=== PATIENT | female | born 1950 | race Caucasian/White ===

== ENCOUNTER → 2016-09-24 | Outpatient (CLI) | payer MEDICARE ==
--- NOTE | 2016-09-24 10:21 | MR ---
EXAMINATION TYPE: MR shoulder RT wo con DATE OF EXAM: 09/24/2016 10:03 AM COMPARISON: NONE HISTORY: pain in right shoulder TECHNIQUE: Multiplanar multispin echo imaging of the right shoulder was performed. FINDINGS: Rotator cuff : Full thickness partial tear supraspinatus tendon distal to the critical zone with flui d-filled gap of 8.8 mm. The remaining supraspinatus tendon is thickened and demonstrates heterogeneit y with a microinjury. Tendinosis of the subscapularis tendon. Infraspinatus tendon is intact. Bursa: Amount of subacromial subdeltoid fluid. Additional fluid noted within the subcoracoid region. Musculature: There is no muscular tear, contusion, or atrophy. Acromioclavicular joint : Moderate AC joint arthropathy. Lateral downsloping of the acromion with sub acromial spurring resulting in impingement. Osseous structures : There are no fractures or regions of abnormal bone marrow signal intensity. Long biceps tendon : The biceps tendon is normally situated within the bicipital groove. No complete or partial biceps tendon tear is present. Intra-articular tendinosis of the biceps tendon. Glenohumeral Joint fluid : There is no glenohumeral joint effusion. Cartilage and Bone : No focal hyaline cartilage defects are noted. No Hill-Sachs, reverse Hill-Sachs, or bony Bankart lesions are seen. Labrum : There are no SLAP or soft tissue Bankart lesions. No paralabral cysts are seen. OTHER FINDINGS : none IMPRESSION: 1. Full thickness partial tear supraspinatus tendon distal to the critical zone with fluid-filled gap of 8.8 mm. 2. Subacromial impingement.
== END | disposition home or self-care (01) ==
LOC: RADMRIMAIN 09:11
PROVIDERS: ATTEND Family Medicine
DX: M75.121 Complete rotator cuff tear or rupture of right shoulder, not specified as traumatic (principal); M25.811 Other specified joint disorders, right shoulder

== ENCOUNTER → 2017-03-13 | Outpatient (CLI) | payer MEDICARE ==
--- NOTE | 2017-03-13 16:53 | BD ---
EXAMINATION TYPE: MG DEXA axial skeleton. DATE OF EXAM: 03/13/2017 COMPARISON: NONE CLINICAL HISTORY: 66-year-old female screening for osteoporosis Height: 5 FT 3 IN Weight: 137 FRAX RISK QUESTIONS: Alcohol (3 or more units per day): NO Family History (Parent hip fracture): NO Glucocorticoids (More than 3mos): NO (Ex: prednisone, prednisolone, methylprednisolone, dexamethasone, and hydrocortisone). History of Fracture in Adulthood: NO Secondary Osteoporosis: 1. Type 1 Diabetes: NO 2. Hyperthyroidism: NO 3. Menopause before 45: NO 4. Malnutrition: NO 5. Chronic liver disease: NO Rheumatoid Arthritis: NO Current Tobacco Use: NO RISK FACTORS HISTORY OF: Family History of Osteoporosis: YES Active: YES Postmenopausal woman: AGE 49 MEDICATIONS: Additional Medications: PAXIL, Additional History: EXAM MEASUREMENTS: Bone mineral densitometry was performed using the [employer] System. Bone mineral density as measured about the Lumbar spine is: ----- L1-L4(G/cm2): 1.095 T Score Values are as follows: ----- L2: -1.1 ----- L3: -1.1 ----- L4: -0.4 ----- L1-L4: -0.7 Bone mineral density has: INCREASED 9.5 % since study of: 2009 Bone mineral density about the R hip (g/cm2): 0.753 Bone mineral density about the L hip (g/cm2): 0.837 T Score values are as follows: -----R Neck: -2.1 -----L Neck: -1.4 -----R Total: -0.9 -----L Total: -0.6 Bone mineral density has: DECREASED -1.1 % since study of: 2009 IMPRESSION: Osteopenia (T Score between -2.5 and -1 as noted by T score values There is slightly increased risk of fracture and the patient may be considered for treatment. Re-Screen 2-5 years. NOTE: T-SCORE=SD OF THE YOUNG ADULT MEAN.
== END | disposition home or self-care (01) ==
LOC: RADBDWWP 09:20
PROVIDERS: ATTEND Obstetrics & Gynecology
DX: M85.851 Other specified disorders of bone density and structure, right thigh (principal); M85.852 Other specified disorders of bone density and structure, left thigh; Z78.0 Asymptomatic menopausal state
CPT/HCPCS: 77080

== ENCOUNTER → 2017-06-17 | Outpatient (CLI) | payer MEDICARE ==
[2017-06-17 10:10] LABS: Basophils % (A) 1 %; Eosinophils # (A) 0.3 k/uL (0-0.7); Eosinophils % (A) 7 %; HCT 41.4 % (34.0-46.0); HGB 13.4 gm/dL (11.4-16.0); Lymphocytes # (A) 1.5 k/uL (1.0-4.8); Lymphocytes % (A) 36 %; MCH 30.4 pg (25.0-35.0); MCHC 32.5 g/dL (31.0-37.0); MCV 93.8 fL (80.0-100.0); Mean Platelet Volume 6.6; Monocytes # (A) 0.3 k/uL (0-1.0); Monocytes % (A) 6 %; Neutrophils # (A) 1.9 k/uL (1.3-7.7); Neutrophils % (A) 47 %; Platelet Count 330 k/uL (150-450); RBC 4.42 m/uL (3.80-5.40); RDW 12.9 % (11.5-15.5); WBC 4.1 k/uL (3.8-10.6)
[2017-06-17 10:21] LABS: ALT 49 U/L (9-52); AST 40 U/L (14-36); Albumin 4.1 g/dL (3.5-5.0); Alkaline Phosphatase 127 U/L (38-126); Anion Gap 9 mmol/L; Blood Urea Nitrogen 17 mg/dL (7-17); Calcium 9.9 mg/dL (8.4-10.2); Carbon Dioxide 27 mmol/L (22-30); Chloride 107 mmol/L (98-107); Cholesterol 276 mg/dL (<200); Glucose 98 mg/dL (74-99); HDL Cholesterol 47 mg/dL (40-60); LDL Cholesterol,Calculated 170 mg/dL (0-99); Potassium 4.7 mmol/L (3.5-5.1); Sodium 143 mmol/L (137-145); Total Bilirubin 0.6 mg/dL (0.2-1.3); Total Protein 7.2 g/dL (6.3-8.2); Triglycerides 295 mg/dL (<150)
[2017-06-17 16:49] LABS: Sex Horm Bind Glob 41.4 nmol/L (23.15-159.07)
[2017-06-19 21:21] LABS: Hepatitis A Antibody IgM Non-Reactive (Non-Reactive); Hepatitis B Core IgM Non-Reactive (Non-Reactive)
== END | disposition home or self-care (01) ==
LOC: LABWHC1 09:26
PROVIDERS: ATTEND Family Medicine
DX: Z00.01 Encounter for general adult medical examination with abnormal findings (principal); E89.41 Symptomatic postprocedural ovarian failure; Z11.59 Encounter for screening for other viral diseases
CPT/HCPCS: 36415; 80053; 80061; 80074; 82672; 83001; 83002; 84270; 84402; 84403; 84443; 85025

== ENCOUNTER → 2017-09-01 | Outpatient (CLI) | payer MEDICARE ==
[2017-09-01 10:21] LABS: Albumin 4.4 g/dL (3.5-5.0); Calcium 10.4 mg/dL (8.4-10.2); Potassium 4.8 mmol/L (3.5-5.1); Total Bilirubin 0.4 mg/dL (0.2-1.3); Total Protein 7.3 g/dL (6.3-8.2)
== END | disposition home or self-care (01) ==
LOC: LABWHC1 09:34
PROVIDERS: ATTEND Nurse Practitioner Adult Health
DX: E78.5 Hyperlipidemia, unspecified (principal)
CPT/HCPCS: 36415; 80053; 80061

== ENCOUNTER → 2017-11-15 | Outpatient (CLI) | payer MEDICARE | END | disposition home or self-care (01) | LOC: LABWHC1 14:13 | PROVIDERS: ATTEND Family Medicine | DX: E89.41 Symptomatic postprocedural ovarian failure (principal) | CPT/HCPCS: 36415; 82672; 84270; 84402; 84403 ==

== ENCOUNTER → 2018-05-02 | Outpatient (CLI) | payer MEDICARE ==
[2018-05-02 09:43] VITALS: BP 152/52; PULSE 70; RESP 18; TEMP 97.9; BMI 24.4
--- NOTE | 2018-05-02 10:22 | P.HPOB ---
History of Present Illness H&P Date: 05/02/18 Chief Complaint: The patient is here for her routine gynecologic exam and mammogram. This is a 67-year-old with an LMP of 1976. The patient is status post GILBERTO for uterine fibroids. She continues to use paroxitine for hot flashes. She tried to wean off of this by taking this every other day, but the hot flashes became very intense so she went back to taking it daily. Review of Systems Her weight has been stable. She denies respiratory, cardiac and G.I. problems. She denies maltreatment or problems with falling. : she denies any significant problems with urinary leakage. Past Medical History Past Medical History: GERD/Reflux, Hyperlipidemia Additional Past Medical History / Comment(s): HX KIDNEY STONE.,HX OF H-PYLORI., HOT FLASHES. 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 History of GILBERTO for uterine fibroids. History of Any Multi-Drug Resistant Organisms: None Reported Past Surgical History: Breast Surgery (Right breast biopsy), Hysterectomy (GILBERTO in 1976), Orthopedic Surgery (Right shoulder surgery) Additional Past Surgical History / Comment(s): PARTIAL HYSTERECTOMY, BREAST BX, EGD, COLONOSCOPY 2013(2nd-next 10yrs), SIGMOIDOSCOPY. Past Anesthesia/Blood Transfusion Reactions: Postoperative Nausea & Vomiting ( PONV) Past Psychological History: Anxiety Smoking Status: Never smoker Past Alcohol Use History: Occasional (2-3 per month) Past Drug Use History: None Reported Additional History: She has been since 1967. - Past Family History Father Family Medical History: Cancer Additional Family Medical History / Comment(s): PROSTATE CANCER Mother Family Medical History: Myocardial Infarction ([place]) Additional Family Medical History / Comment(s): Grandfather had heart disease. Grandmother had diabetes. Medications and Allergies Home Medications Medication Instructions Recorded Confirmed Type Cholecalciferol [Vitamin D3] 1,000 tab PO DAILY 12/18/13 05/02/18 History Calcium Carbonate [Calcium] 1,260 mg PO DAILY 03/11/16 05/02/18 History Omeprazole [PriLOSEC] 40 mg PO QAM 03/11/16 05/02/18 History PARoxetine [Paxil] 10 mg PO HS 03/11/16 05/02/18 History Loratadine [Claritin] 10 mg PO DAILY 05/02/18 05/02/18 History Allergies Allergy/AdvReac Type Severity Reaction Status Date / Time hydrocodone bitartrate Allergy Nausea, Verified 05/02/18 09:47 [From Vicodin] Spinning Sulfa (Sulfonamide Allergy Itching, Verified 05/02/18 09:47 Antibiotics) Hives adhesive AdvReac Unknown Irritated Verified 05/02/18 09:47 skin fenofibrate [From Tricor] AdvReac Unknown Muscle Verified 05/02/18 09:47 aches. Exam Vital Signs Temp Pulse Resp BP Pulse Ox 05/02/18 09:33 97.9 F 70 18 152/52 98 Intake and Output 05/01/18 05/02/18 05/02/18 22:59 06:59 14:59 Other: Weight 62.596 kg Height 5'3", weight 138 pounds, BMI 24.4. This is a well-developed well-nourished white female who is alert and oriented times 3 in no acute distress. HEENT: Within normal limits. NECK: Supple without mass or thyromegaly. CHEST AND LUNGS: Clear to auscultation. HEART: Regular rate and rhythm. BREASTS: Are without mass or discharge. There is a slight dimpled area in the area of her right breast biopsy scar which is consistent with a biopsy. AXILLARY EXAM: Negative for adenopathy. BACK: Negative for CVA tenderness. ABDOMEN: Soft, nontender, without palpable masses. PELVIC EXAM: External genitalia appears normal with mild atrophy. Vagina appears normal mild atrophy. There is no evidence of prolapse. Bimanual examination is negative for mass or tenderness. RECTAL EXAM: Rectovaginal exam is negative for mass or tenderness and is negative for occult blood. EXTREMITIES: Nontender. IMPRESSION: 1. 67-year-old menopausal female status post GILBERTO done for benign reasons with normal gynecologic exam. 2. History of osteopenia. 3. Elevated systolic blood pressure. PLAN: 1. Pap smears have been discontinued. 2. Self breast awareness was discussed with the patient. 3. Screening mammogram will be done today. 4. Osteoporosis prevention was discussed. I have stressed the importance of adequate calcium, vitamin D and regular exercise. Recommended amounts of calcium and vitamin D were also discussed. We will plan on repeating the bone density test next year. 5. Continue paroxitine 10 mg daily for hot flashes. She will again try to wean off later this year. 6. She did receive a flu shot this past fall. 7. I have left a message on her voicemail that her blood pressure was elevated. I have recommended that she check her own blood pressures and follow- up with Dr. Ballard for blood pressure elevations. 8. She will return in one year.
--- NOTE | 2018-05-05 08:37 | MM ---
Reason for exam: screening (asymptomatic). Last mammogram was performed 1 year and 1 month ago. History: Patient is postmenopausal. Benign US right guided mammotome of the right breast, August 29, 2005. Benign excisional biopsy of the right breast, August 16, 1999. Benign ultrasound-guided core biopsy, January 26, 1999. Core biopsy of the right breast. MG 3D Screening Mammo W/Cad Bilateral CC and MLO view(s) were taken. Prior study comparison: April 12, 2017, bilateral MG 3d screening mammo w/cad. March 23, 2016, bilateral MG 3d screening mammo w/cad. The breast tissue is heterogeneously dense. This may lower the sensitivity of mammography. There are benign-appearing round vascular bilateral breast calcifications. No discrete abnormality. ASSESSMENT: Benign, BI-RAD 2 RECOMMENDATION: Routine screening mammogram of both breasts in 1 year.
== END ==
LOC: WWCWWP 09:25
PROVIDERS: ATTEND Obstetrics & Gynecology
DX: Z12.31 Encounter for screening mammogram for malignant neoplasm of breast (principal)
CPT/HCPCS: 77063; 77067

== ENCOUNTER → 2018-08-13 | Outpatient (CLI) | payer MEDICARE ==
[2018-08-13 11:20] LABS: Basophils # (A) 0.1 k/uL (0-0.2); Basophils % (A) 1 %; Eosinophils # (A) 0.4 k/uL (0-0.7); Eosinophils % (A) 8 %; HCT 39.9 % (34.0-46.0); HGB 12.8 gm/dL (11.4-16.0); Lymphocytes # (A) 2.1 k/uL (1.0-4.8); Lymphocytes % (A) 41 %; MCH 30.7 pg (25.0-35.0); MCHC 32.2 g/dL (31.0-37.0); MCV 95.3 fL (80.0-100.0); Mean Platelet Volume 6.8; Monocytes # (A) 0.3 k/uL (0-1.0); Monocytes % (A) 5 %; Neutrophils # (A) 2.2 k/uL (1.3-7.7); Neutrophils % (A) 42 %; Platelet Count 377 k/uL (150-450); RBC 4.18 m/uL (3.80-5.40); WBC 5.2 k/uL (3.8-10.6)
[2018-08-13 17:50] LABS: Albumin 4.5 g/dL (3.80-4.90); Albumin/Globulin Ratio 2.14 (1.60-3.17); Anion Gap 4.8 mmol/L (4.00-12.00); Calcium 9.6 mg/dL (8.7-10.3); Carbon Dioxide 25.2 mmol/L (21.6-31.8); Globulin 2.1 g/dL (1.6-3.3); LDL Cholesterol,Calculated 105.4 mg/dL (0.0-131.0); Potassium 4.5 mmol/L (3.5-5.5); Total Bilirubin 0.5 mg/dL (0.2-1.2); Total Protein 6.6 g/dL (6.2-8.2); VLDL Calculation 18.6 mg/dL (5.00-40.00)
== END | disposition home or self-care (01) ==
LOC: LABWHC1 09:32
PROVIDERS: ATTEND Family Medicine
DX: E78.5 Hyperlipidemia, unspecified (principal)
CPT/HCPCS: 36415; 80053; 80061; 82550; 85025

== ENCOUNTER → 2018-09-25 | Outpatient (CLI) | payer MEDICARE | END | disposition home or self-care (01) | LOC: CPPFTMAIN 13:40 | PROVIDERS: ATTEND Family Medicine | DX: J44.9 Chronic obstructive pulmonary disease, unspecified (principal) | CPT/HCPCS: 94060; 94726; 94729 ==

== ENCOUNTER → 2018-12-21 | Outpatient (CLI) | payer MEDICARE ==
[2018-12-21 18:08] LABS: Alternaria alternata IgE <0.10 kU/L; Aspergillus fumagatus IgE <0.10 kU/L; Cladosporian herbarum IgE <0.10 kU/L; Cockroach IgE <0.10 kU/L
[2018-12-21 18:09] LABS: Birch IgE <0.10 kU/L; Maple (Box Elder) IgE <0.10 kU/L; Oak IgE <0.10 kU/L
[2018-12-21 18:10] LABS: Elm IgE <0.10 kU/L; Ragweed,Common IgE <0.10 kU/L
[2018-12-21 18:11] LABS: Dermato. farinae IgE <0.10 kU/L; Red Top (Bentgrass) IgE <0.10 kU/L
[2018-12-21 18:12] LABS: Cat Epith & Dander IgE <0.10 kU/L; Dog Dander IgE <0.10 kU/L
== END | disposition home or self-care (01) ==
LOC: LABWHC1 10:44
PROVIDERS: ATTEND Internal Medicine Critical Care Medicine
DX: R05 Cough (principal)
CPT/HCPCS: 36415; 82784; 82785; 86003

== ENCOUNTER → 2019-05-29 | Outpatient (CLI) | payer MEDICARE ==
[2019-05-29 11:34] VITALS: BP 117/76; PULSE 72; RESP 18; TEMP 97.7
--- NOTE | 2019-05-29 12:32 | P.HPOB ---
History of Present Illness H&P Date: 05/29/19 Chief Complaint: The patient is here for her routine gynecologic exam and ma mmogram. This is a 68-year-old with an LMP of 1976. The patient is status post GILBERTO for uterine fibroids. The patient continues to use paroxetine for vasomotor symptoms. She feels she does do better with paroxetine with hot flashes, but still has night sweats. She also feels that it helps with an anxious feeling that she gets in her body. Her mail order pharmacy has sent a safety conside ration with paroxetine use in seniors. There is some concern for anticholinergic side effects and possible sedation and orthostatic hypotension. The patient states she does have dry eyes, but otherwise has not had much problem with it. She is willing to try a different SSRI medication. Review of Systems She has lost about 16 pounds over the last year. She denies respiratory, cardiac and G.I. problems. She denies maltreatment or problems with falling. : she denies any significant problems with urinary leakage. Past Medical History Past Medical History: GERD/Reflux, Hyperlipidemia Additional Past Medical History / Comment(s): HX KIDNEY STONE.,HX OF H-PYLORI., HOT FLASHES. 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 History of GILBERTO for uterine fibroids. History of Any Multi-Drug Resistant Organisms: None Reported Past Surgical History: Breast Surgery, Hysterectomy, Orthopedic Surgery Additional Past Surgical History / Comment(s): GILBERTO in 1976, BREAST BX, EGD, COLONOSCOPY 2013(2nd-next 10yrs), SIGMOIDOSCOPY. Past Anesthesia/Blood Transfusion Reactions: Postoperative Nausea & Vomiting (PONV) Past Psychological History: Anxiety Smoking Status: Never smoker Past Alcohol Use History: Occasional (2-3 per month) Past Drug Use History: None Reported Additional History: She has been since 1967. She is not sexually active. - Past Family History Father Family Medical History: Cancer Additional Family Medical History / Comment(s): PROSTATE CANCER Mother Family Medical History: Myocardial Infarction ([place]) Additional Family Medical History / Comment(s): Grandfather had heart disease. Grandmother had diabetes. Medications and Allergies Home Medications Medication Instructions Recorded Confirmed Type Cholecalciferol [Vitamin D3] 1,000 tab PO DAILY 12/18/13 05/02/18 History Calcium Carbonate [Calcium] 1,260 mg PO DAILY 03/11/16 05/02/18 History Omeprazole [PriLOSEC] 40 mg PO QAM 03/11/16 05/02/18 History PARoxetine [Paxil] 10 mg PO HS #90 tab 05/02/18 Rx Albuterol Sulfate [Proair Hfa] 1 - 2 puff INHALATION Q6HR PRN 05/29/19 05/29/19 History Fenofibrate Nanocrystallized 145 mg PO 05/29/19 History [Fenofibrate] Fluticasone Propionate 110 Mcg 1 puff INHALATION RT-BID 05/29/19 05/29/19 History [Flovent 110 Mcg Inhaler (Bulk)] Montelukast [Singulair] 10 mg PO DAILY 05/29/19 05/29/19 History Ranitidine HCl [Zantac] 150 mg PO 05/29/19 History Allergies Allergy/AdvReac Type Severity Reaction Status Date / Time hydrocodone bitartrate Allergy Nausea, Verified 05/29/19 11:34 [From Vicodin] Spinning Sulfa (Sulfonamide Allergy Itching, Verified 05/29/19 11:34 Antibiotics) Hives adhesive AdvReac Unknown Irritated Verified 05/29/19 11:34 skin fenofibrate [From Tricor] AdvReac Unknown Muscle Verified 05/29/19 11:34 aches. Exam Vital Signs Temp Pulse Resp BP Pulse Ox 05/29/19 11:28 97.7 F 72 18 117/76 98 Intake and Output 05/28/19 05/29/19 05/29/19 22:59 06:59 14:59 Other: Weight 55.338 kg Height 5 feet 2 inches, weight 122 pounds, BMI 22.3. This is a well-developed well-nourished white female who is alert and oriented times 3 in no acute distress. HEENT: Within normal limits. NECK: Supple without mass or thyromegaly. CHEST AND LUNGS: Clear to auscultation. HEART: Regular rate and rhythm. BREASTS: Are without mass or discharge. AXILLARY EXAM: Negative for adenopathy. BACK: Negative for CVA tenderness. No significant scoliosis is noted. ABDOMEN: Soft, nontender, without palpable masses. There is an area of seborrheic keratosis just superior to the umbilicus measuring 1 x 1 cm. She states she has had this for any years. PELVIC EXAM: External genitalia appears normal with mild atrophy. Vagina appears normal of atrophy. There is no evidence of prolapse. Bimanual examination is negative for mass or tenderness. RECTAL EXAM: Rectovaginal exam is negative for mass or tenderness and is negative for occult blood. EXTREMITIES: Nontender. IMPRESSION: 1. 68-year-old menopausal female status post GILBERTO for benign reasons, with normal gynecologic exam. 2. History of osteopenia. 3. On paroxetine for vasomotor symptoms and anxiety. PLAN: 1. Pap smears have been discontinued. 2. Self breast awareness was discussed with the patient. 3. Screening mammogram will be done today. 4. Osteoporosis prevention was discussed. I have stressed the importance of adequate calcium, vitamin D and regular exercise. Recommended amounts of calcium and vitamin D were also discussed. Bone density testing will be done today. 5. She did receive her flu shot this past fall. 6. After our long discussion regarding SSRI medications and vasomotor symptoms and anxiety, we have decided to change her from paroxetine to Zoloft 25 mg daily. She will call if she is having side effects or problems. She was instructed to call if she is having strange thoughts such as thoughts of hurting herself. The electronic prescription will be sent to my her pharmacy in [place]. 7. The patient was advised to return in 1-2 years for her well woman examination.
--- NOTE | 2019-05-29 15:12 | BD ---
EXAMINATION TYPE: Axial Bone Density DATE OF EXAM: 05/29/2019 COMPARISON: 03/13/2017 CLINICAL HISTORY: Z 77.0 Height: 62 inches Weight: 122 pounds FRAX RISK QUESTIONS: Alcohol (3 or more units per day): no Family History (Parent hip fracture): no Glucocorticoids (More than 3mos): asthma inhalers (Ex: prednisone, prednisolone, methylprednisolone, dexamethasone, and hydrocortisone). History of Fracture in Adulthood: no Secondary Osteoporosis: 1. Type 1 Diabetes: no 2. Hyperthyroidism: no 3. Menopause before 45: no 4. Malnutrition: no 5. Chronic liver disease: no Rheumatoid Arthritis: no Current Tobacco Use: no RISK FACTORS HISTORY OF: Family History of Osteoporosis: yes, mother Active: yes Diet low in dairy products/other sources of calcium: somewhat Postmenopausal woman: yes Take estrogen and/or progesterone medications: no Lost more than 2 inches in height since high school: no Frequent falls: no Poor Health: no Hyperparathyroidism: no Adrenal Insufficiency: no MEDICATIONS: Prednisone or other steroids: yes How Long: since Dec 2018 Thyroid Medications: no Osteoporosis Medications:no Additional Medications: Fenofibrate, Paroxetine, zantac, omeprazole, Vitamin D, Calcium with Vitamin D3, S ingulair, fluticasone, Proair HFA as needed Additional History: EXAM MEASUREMENTS: Bone mineral densitometry was performed using the [employer]. Bone mineral density as measured about the Lumbar spine is: ----- L1-L4(G/cm2): 1.053 T Score Values are as follows: ----- L2: -1.6 ----- L3: -1.8 ----- L4: 0.0 ----- L1-L4: -1.1 Bone mineral density has: Decreased -2.6% since study of: 03/13/2017 Bone mineral density about the R hip (g/cm2): 0.774 Bone mineral density about the L hip (g/cm2): 0.814 T Score values are as follows: -----R Neck: -1.9 -----L Neck: -1.6 -----R Total: -1.2 -----L Total: -1.0 Bone mineral density has: Decreased -4.1% since study of: 03/13/2017 IMPRESSION: Osteopenia (T Score between -2.5 and -1). There is slightly increased risk of fracture and the patient may be considered for treatment. Re-Screen 2-5 years. NOTE: T-SCORE=SD OF THE YOUNG ADULT MEAN.
--- NOTE | 2019-05-30 14:15 | MM ---
Reason for exam: screening (asymptomatic). Last mammogram was performed 1 year and 1 month ago. History: Patient is postmenopausal. Benign US right guided mammotome of the right breast, August 29, 2005. Benign excisional biopsy of the right breast, August 16, 1999. Benign ultrasound-guided core biopsy, January 26, 1999. Core biopsy of the right breast. Physical Findings: A clinical breast exam by your physician is recommended on an annual basis and results should be correlated with mammographic findings. MG 3D Screening Mammo W/Cad Bilateral CC and MLO view(s) were taken. Prior study comparison: May 02, 2018, bilateral MG 3d screening mammo w/cad. April 12, 2017, bilateral MG 3d screening mammo w/cad. The breast tissue is heterogeneously dense. This may lower the sensitivity of mammography. No significant changes when compared with prior studies. ASSESSMENT: Benign, BI-RAD 2 RECOMMENDATION: Routine screening mammogram of both breasts in 1 year.
== END | disposition home or self-care (01) ==
LOC: WWCWWP 11:11
PROVIDERS: ATTEND Obstetrics & Gynecology
DX: Z12.31 Encounter for screening mammogram for malignant neoplasm of breast (principal); M85.80 Other specified disorders of bone density and structure, unspecified site; Z78.0 Asymptomatic menopausal state
CPT/HCPCS: 77063; 77067; 77080

== ENCOUNTER → 2019-11-18 | Outpatient (CLI) | payer MEDICARE ==
[2019-11-18 11:15] LABS: Basophils # (A) 0.1 k/uL (0-0.2); Basophils % (A) 1 %; Eosinophils # (A) 0.4 k/uL (0-0.7); Eosinophils % (A) 7 %; HCT 40.3 % (34.0-46.0); Lymphocytes # (A) 1.5 k/uL (1.0-4.8); Lymphocytes % (A) 25 %; MCHC 32.3 g/dL (31.0-37.0); MCV 99.1 fL (80.0-100.0); Mean Platelet Volume 7.2; Monocytes # (A) 0.3 k/uL (0-1.0); Monocytes % (A) 4 %; Neutrophils # (A) 3.6 k/uL (1.3-7.7); Neutrophils % (A) 60 %; Platelet Count 425 k/uL (150-450); RBC 4.07 m/uL (3.80-5.40); RDW 12.7 % (11.5-15.5)
[2019-11-18 19:27] LABS: Hemoglobin A1C 5.9 % (4.0-6.0)
[2019-11-18 20:35] LABS: African American GFR (CKD) 87.2 (60.0-200.0); Albumin 4.4 g/dL (3.80-4.90); Albumin/Globulin Ratio 1.83 (1.60-3.17); BUN/Creat Ratio 22.5 Ratio (12.00-20.00); Calcium 9.9 mg/dL (8.7-10.3); Chol/HDL Ratio 2.05; Globulin 2.4 g/dL (1.6-3.3); LDL Cholesterol,Calculated 78.8 mg/dL (0.0-131.0); Non-African American GFR(CKD) 75.2 (60.0-200.0); Potassium 4.6 mmol/L (3.5-5.5); Total Bilirubin 0.6 mg/dL (0.2-1.2); Total Protein 6.8 g/dL (6.2-8.2); VLDL Calculation 13.2 mg/dL (5.00-40.00)
== END ==
LOC: LABWHC1 09:09
PROVIDERS: ATTEND Family Medicine
DX: E78.5 Hyperlipidemia, unspecified (principal)
CPT/HCPCS: 36415; 80053; 80061; 82550; 83036; 85025

== ENCOUNTER → 2020-07-28 | Outpatient (CLI) | payer MEDICARE ==
[2020-07-28 11:48] VITALS: BP 133/65; PULSE 79; RESP 18; TEMP 98.7
--- NOTE | 2020-07-28 12:23 | P.HPOB ---
History of Present Illness H&P Date: 07/28/20 Chief Complaint: The patient is here for her routine gynecologic exam and ma mmogram. This is a 77-year-old with an LMP of 1976. She is status post GILBERTO for uterine fibroids. She states she has done well with Zoloft 25 mg daily which she has used for vasomotor symptoms and anxiety. She previously was using Paxil but this was changed to Zoloft because of some concerns regarding Paxil use in seniors. She has not tried to wean off of the Zoloft recently. She still has occasional hot flashes but she believes these are significantly reduced with the Zoloft. Review of Systems She is gained about 6 pounds over the past year. She denies respiratory, cardiac and G.I. problems. She denies maltreatment or problems with falling. : she denies any significant problems with urinary leakage, but when she has to get to the bathroom, she sometimes has to do this right away. Past Medical History Past Medical History: GERD/Reflux, Hyperlipidemia Additional Past Medical History / Comment(s): HX KIDNEY STONE.,HX OF H-PYLORI., HOT FLASHES. Osteopenia. Seasonal ALLERGIES. 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 History of GILBERTO for uterine fibroids. History of Any Multi-Drug Resistant Organisms: None Reported Past Surgical History: Breast Surgery, Hysterectomy, Orthopedic Surgery Additional Past Surgical History / Comment(s): GILBERTO in 1976, BREAST BX, EGD, COLONOSCOPY 2013(2nd-next 10yrs), SIGMOIDOSCOPY. Past Anesthesia/Blood Transfusion Reactions: Postoperative Nausea & Vomiting (PONV) Past Psychological History: Anxiety Smoking Status: Never smoker Past Alcohol Use History: Occasional Past Drug Use History: None Reported Additional History: She has been since 1967 and is not sexually active. - Past Family History Father Family Medical History: Cancer Additional Family Medical History / Comment(s): PROSTATE CANCER Mother Family Medical History: Myocardial Infarction ([place]) Additional Family Medical History / Comment(s): Grandfather had heart disease. Grandmother had diabetes. Medications and Allergies Home Medications and Allergies Comment(s): Zoloft 25 mg by mouth daily. Home Medications Medication Instructions Recorded Confirmed Type Cholecalciferol [Vitamin D3] 2,000 tab PO DAILY 12/18/13 07/28/20 History Calcium Carbonate [Calcium] 1,260 mg PO DAILY 03/11/16 07/28/20 History Omeprazole [PriLOSEC] 40 mg PO QAM 03/11/16 07/28/20 History Albuterol Sulfate [Proair Hfa] 1 - 2 puff INHALATION Q6HR PRN 05/29/19 07/28/20 History Fenofibrate Nanocrystallized 145 mg PO DAILY 05/29/19 07/28/20 History [Fenofibrate] Fluticasone Propionate 110 Mcg 1 puff INHALATION RT-BID 05/29/19 07/28/20 History [Flovent 110 Mcg Inhaler (Bulk)] Montelukast [Singulair] 10 mg PO DAILY 05/29/19 07/28/20 History Sertraline [Zoloft] 25 mg PO DAILY #90 tablet 05/29/19 07/28/20 Rx Cetirizine HCl [Zyrtec] 10 mg PO DAILY 07/28/20 07/28/20 History Fluticasone Nasal Onia [Flonase 1 spray EA NOSTRIL DAILY 07/28/20 07/28/20 History Nasal Onia] Allergies Allergy/AdvReac Type Severity Reaction Status Date / Time hydrocodone bitartrate Allergy Nausea, Verified 07/28/20 11:37 [From Vicodin] Spinning Sulfa (Sulfonamide Allergy Itching, Verified 07/28/20 11:37 Antibiotics) Hives adhesive AdvReac Unknown Irritated Verified 07/28/20 11:37 skin fenofibrate [From Tricor] AdvReac Unknown Muscle Verified 07/28/20 11:37 aches. Exam Vital Signs Temp Pulse Resp BP Pulse Ox 07/28/20 11:42 98.7 F 79 18 133/65 97 Intake and Output 07/27/20 07/28/20 07/28/20 22:59 06:59 14:59 Other: Weight 58.06 kg Height 5 foot 1-1/2 inches, weight 128 pounds, BMI 23.8. This is a well-developed well-nourished white female who is alert and oriented times 3 in no acute distress. HEENT: Within normal limits. NECK: Supple without mass or thyromegaly. CHEST AND LUNGS: Clear to auscultation. HEART: Regular rate and rhythm. BREASTS: Are without mass or discharge. AXILLARY EXAM: Negative for adenopathy. BACK: Negative for CVA tenderness. ABDOMEN: Soft, nontender, without palpable masses. PELVIC EXAM: Normal external genitalia with mild atrophy. Cervix and vagina appear normal with mild to moderate atrophy. There is no unusual discharge. There is no evidence of prolapse. The uterus is midposition, nongravid size and nontender. There are no palpable adnexal masses or tenderness. RECTAL EXAM: rectovaginal exam is negative for mass or tenderness and is negative for occult blood. EXTREMITIES: Nontender. IMPRESSION: 1. 69-year-old menopausal female status post GILBERTO for benign reasons with normal gynecologic exam. 2. History of osteopenia 3. Postmenopausal Vasomotor symptoms and anxiety improved with Zoloft 25 mg daily. PLAN: 1. Pap smears have been discontinued. 2. Self breast awareness was discussed with the patient. 3. Screening mammogram will be done today. 4. Osteoporosis prevention was discussed. I have stressed the importance of adequate calcium, vitamin D and regular exercise. Recommended amounts of calcium and vitamin D were also discussed. We will plan on repeating the bone density testing in 1 year. 5. I have asked her to try to wean off of the Zoloft which she has been taking for menopausal vasomotor symptoms and anxiety. She will try to do this in the upcoming year. The prescription for the Zoloft will be sent to [email or web address] electronically. 6. She did get a flu shot last fall and plans to get the Covid vaccination in the near future. 7. She was advised to return in one year for her annual well woman exam.
--- NOTE | 2020-07-30 10:49 | MM ---
Reason for exam: screening (asymptomatic). Last mammogram was performed 1 year and 2 months ago. History: Patient is postmenopausal. Benign US right guided mammotome of the right breast, August 29, 2005. Benign excisional biopsy of the right breast, August 16, 1999. Benign ultrasound-guided core biopsy, January 26, 1999. Core biopsy of the right breast. Physical Findings: A clinical breast exam by your physician is recommended on an annual basis and results should be correlated with mammographic findings. MG 3D Screening Mammo W/Cad Bilateral CC, MLO, and XCCL view(s) were taken. Prior study comparison: May 29, 2019, bilateral MG 3d screening mammo w/cad. May 02, 2018, bilateral MG 3d screening mammo w/cad. The breast tissue is heterogeneously dense. This may lower the sensitivity of mammography. Focal asymmetry right anterior breast, stable. No significant changes when compared with prior studies. ASSESSMENT: Benign, BI-RAD 2 RECOMMENDATION: Routine screening mammogram of both breasts in 1 year.
== END | disposition home or self-care (01) ==
LOC: WWCWWP 11:29
PROVIDERS: ATTEND Obstetrics & Gynecology
DX: Z12.31 Encounter for screening mammogram for malignant neoplasm of breast (principal); Z87.39 Personal history of other diseases of the musculoskeletal system and connective tissue; F41.9 Anxiety disorder, unspecified; N95.1 Menopausal and female climacteric states; K21.9 Gastro-esophageal reflux disease without esophagitis; E78.5 Hyperlipidemia, unspecified
CPT/HCPCS: 77063; 77067

== ENCOUNTER → 2020-10-12 | Outpatient (CLI) | payer MEDICARE ==
--- NOTE | 2020-10-12 11:11 | CT ---
EXAMINATION TYPE: CT chest w con DATE OF EXAM: 10/12/2020 COMPARISON: Radiographs 09/30/2020 HISTORY: 69 year-old female R05, chronic cough TECHNIQUE: Contiguous axial scanning of the chest after the administration of 100 mL of Isovue 300. Coronal/sagittal reconstructions performed. CT DLP: 158.9mGycm. Automatic exposure control utilized for a dose reduction. FINDINGS: The heart is upper limits of normal in size without pericardial effusion. Aorta normal caliber with bovine configuration to the aortic arch and additional direct takeoff of th e left vertebral artery directly from the aortic arch. No thoracic lymphadenopathy by CT size criteria. Mild biapical pleural-parenchymal scarring. Some basilar right middle lobe nodularity measuring up to 4 mm, axial image 41 and 44. Mild patchy density and minimal bronchiolectasis is also present, for e xample, axial image 37. Mild patchy changes and minimal bronchiolectasis inferior lingula, axial image 41. Mild dependent atelectasis posterior left base. No other consolidation or pleural effusion seen. Visualized upper abdomen shows no gross of neurology. Bones: Mild to moderate degenerative disc disease anteriorly at the mid thoracic spine with slightly accentuated midthoracic kyphosis. IMPRESSION: 1. Some mild patchy and nodular changes within the basilar right middle lobe and inferior lingula wit h some associated minimal bronchiolectasis. Findings are nonspecific and could reflect sequela of alejo or infection/inflammation. An indolent EZ infection is also a differential consideration. 2. Six-month follow-up CT to reassess the right middle lobe nodularity measuring up to 4 mm.
== END | disposition home or self-care (01) ==
LOC: RADCTMAIN 09:48
PROVIDERS: ATTEND Internal Medicine Critical Care Medicine
DX: J47.9 Bronchiectasis, uncomplicated (principal); R91.1 Solitary pulmonary nodule
CPT/HCPCS: 82565; 84520; 71260; 36415; Q9967

== ENCOUNTER → 2020-12-18 | Outpatient (CLI) | payer MEDICARE ==
--- NOTE | 2020-12-18 08:31 | US ---
EXAMINATION TYPE: US kidneys/renal and bladder DATE OF EXAM: 12/18/2020 COMPARISON: NONE CLINICAL HISTORY: R35.15 URGENCY OF URINATION. Patient state having urine urgency and pelvic pressure . EXAM MEASUREMENTS: Right Kidney: 9.8 x 4.0 x 3.4 cm Left Kidney: 10.7 x 4.3 x 4.4 cm Post Void Residual Volume: 11.6 mL Right Kidney: No hydronephrosis or masses seen Left Kidney: upper pole mid echogenic focus with shadow = 0.7 cm, nonobstructing Bladder: distended, anechoic Bilateral Jets seen Normal Post Void Residual There is no evidence for hydronephrosis at this point in time. No masses are identified. The urinary bladder is anechoic. Bilateral ureteral jets are seen. IMPRESSION: Nonobstructive left nephrolithiasis
== END | disposition home or self-care (01) ==
LOC: RADUSWWP 07:07
PROVIDERS: ATTEND Family Medicine
DX: N20.0 Calculus of kidney (principal)
CPT/HCPCS: 76770

== ENCOUNTER 2021-10-06 09:19 | Day surgery (SDC) | payer MEDICARE ==
[2021-10-04 14:24] VITALS: BMI 20.9
[~2021-10-06 09:19] MED LIST: LACTATED RINGERS 1,000 ML IV SCH; LIDOCAINE 1% (10MG/ML) FOR IV START INTRADERMA PRN
[2021-10-06 10:18] VITALS: TEMP 97.5
[2021-10-06] MEDS ORDERED: ONDANSETRON 4 MG/2 ML VIAL IVP ONE ×2 (10:31→10:36)
[2021-10-06] MEDS ORDERED: ONDANSETRON 4 MG/2 ML VIAL ONE (10:34)
[2021-10-06] MEDS ORDERED: LIDOCAINE 2% INJ 20 MG/ML (2 ML VIAL) ONE (11:11)
[2021-10-06] MEDS ORDERED: PROPOFOL 10 MG/ML 20 ML VIAL IV ONE (11:11)
--- NOTE | 2021-10-06 11:42 | P.PCN ---
Date of Procedure: 10/06/21 Procedure(s) Performed: Brief history: Patient is a pleasant 70-year-old white female scheduled for an elective upper endoscopy as well as colonoscopy as a part of evaluation of GERD and screening for colon cancer Procedure performed: Esophagogastroduodenoscopy with biopsy Colonoscopy Preoperative diagnosis: GERD Screening for colon cancer Anesthesia: [facility] [place] Procedure: After informed consent was obtained from the patient was brought into the endoscopy unit and IV sedation was administered by anesthesia under continuous monitoring. Initially upper endoscopy was done. The Olympus GF 160 video endoscope was inserted inserted into the mouth and esophagus intubated without any difficulty and was gradually advanced into the stomach and duodenum and carefully examined. The bulb and second part of the duodenum appeared normal. The scope was then withdrawn into the stomach adequately insufflated with air and upon careful examination the antrum and body, cardia and fundus appeared normal. As mild gastritis noted and biopsies were done from this antrum of the stomach. Multiple small gastric polyps were also seen in the body the stomach which were biopsied. The scope was then withdrawn into the esophagus. The GE junction was located at 40 cm to the incisors. It appeared regular with no erythema erosions or ulcerations. Rest of the esophagus appeared normal. Patient tolerated the procedure well. At this time the patient continued to remain sedation. Initial digital rectal examination was normal. Olympus CF 160 video colonoscope was then inserted into the rectum and gradually advanced to the sigmoid colon and further advancement was not possible because of acute ventilation this area. The scope was removed and a pediatric colonoscopy was introduced into the rectum with moderate to severe difficulty the scope was advanced into the cecum Careful examination was performed as the scope was gradually being withdrawn. The prep was excellent. The cecum, ascending colon, transverse colon, descending colon, sigmoid colon and rectum appeared normal. At her sigmoid diverticulosis seen Retroflexion was performed in the rectum and no lesions were noted. Patient tolerated the procedure well. Impression: 1. Upper endoscopy revealed mild antral gastritis and multiple small gastric polyps 2. Colonoscopy revealed scattered sigmoid diverticulosis and no evidence of colorectal neoplasia Recommendations: Findings of this examination were discussed with the patient as well as her family. She was advised to follow with the biopsy results. Recommend repeat screening colonoscopy in 10 years.
[2021-10-06 12:15] VITALS: BP 98/52; PULSE 65; RESP 16
== END 2021-10-06 12:31 | disposition home or self-care (01) ==
LOC: ORWHC2ENDO 09:19
PROVIDERS: ATTEND Internal Medicine Gastroenterology
DX: K29.50 Unspecified chronic gastritis without bleeding (principal); K57.30 Diverticulosis of large intestine without perforation or abscess without bleeding; K31.7 Polyp of stomach and duodenum; K21.9 Gastro-esophageal reflux disease without esophagitis; Z79.899 Other long term (current) drug therapy; Z79.51 Long term (current) use of inhaled steroids; K29.70 Gastritis, unspecified, without bleeding; Z88.5 Allergy status to narcotic agent; Z88.2 Allergy status to sulfonamides; Z88.8 Allergy status to other drugs, medicaments and biological substances; J45.909 Unspecified asthma, uncomplicated; Z87.442 Personal history of urinary calculi; F32.A Depression, unspecified; Z90.710 Acquired absence of both cervix and uterus
CPT/HCPCS: 88305; 43239; J2405; J2704; J2001; G0121

== ENCOUNTER → 2021-11-02 | Outpatient (CLI) | payer MEDICARE ==
[2021-11-02 11:25] VITALS: RESP 17; TEMP 98.4
[2021-11-02 11:32] VITALS: BP 114/65; PULSE 81
--- NOTE | 2021-11-02 12:18 | P.HPOB ---
History of Present Illness H&P Date: 11/02/21 Chief Complaint: The patient is here for her routine gynecologic exam and ma mmogram. This is a 70-year-old with an LMP of 1976. She is status post GILBERTO for uterine fibroids. She has been taking Zoloft 25 mg daily for hot flashes and anxiety. She tried to wean off of the Zoloft, but hot flashes became much worse and she would like to continue on with this medication. She has also been seeing a urologist for microscopic hematuria and kidney stones. She underwent lithotripsy earlier this year and plans to do more lithotripsy on her right kidney for stones. She has been using estradiol vaginal cream 1 g twice weekly for vaginal dryness not related to sexual activity since she is not sexually active. She has been on a special diet for interstitial cystitis and overactive bladder. With these dietary changes, estradiol vaginal cream, and lithotripsy treatments, she states her bladder pain has been much improved. She is without gynecologic complaints. Review of Systems The patient has lost 17 pounds over the last year. She attributes this to her dietary changes related to her bladder issues. She denies respiratory, cardiac, or G.I. problems. Past Medical History Past Medical History: Asthma, GERD/Reflux, Hyperlipidemia Additional Past Medical History / Comment(s): HX KIDNEY STONES.,HX OF H-PYLORI., HOT FLASHES. Osteopenia. Seasonal ALLERGIES. Overactive bladder. PAST HUMAN RESOURCES MANAGER MANUFACTURING HISTORY: She has no history of STDs. History of Any Multi-Drug Resistant Organisms: None Reported Past Surgical History: Breast Surgery, Hysterectomy, Orthopedic Surgery Additional Past Surgical History / Comment(s): GILBERTO in 1976, R BREAST BX, EGD, COLONOSCOPY 2021(next after 10yr), SIGMOIDOSCOPY. RIGHT SHOULDER SURGERY , LEFT KIDNEY STONE-LITHOTRIPSY Past Anesthesia/Blood Transfusion Reactions: Postoperative Nausea & Vomiting (PONV) Past Psychological History: Anxiety Smoking Status: Never smoker Past Alcohol Use History: Occasional (1 or 2 per month) Past Drug Use History: None Reported Additional History: She has been since 1967 and is not sexually active. - Past Family History Father Family Medical History: Cancer Additional Family Medical History / Comment(s): PROSTATE CANCER Mother Family Medical History: Myocardial Infarction (CT) Additional Family Medical History / Comment(s): Grandfather had heart disease. Grandmother had diabetes. Medications and Allergies Home Medications Medication Instructions Recorded Confirmed Type Cholecalciferol [Vitamin D3] 2,000 tab PO DAILY 12/18/13 11/02/21 History Omeprazole [PriLOSEC] 20 mg PO QAM 03/11/16 11/02/21 History Albuterol Sulfate [Proair Hfa] 1 - 2 puff INHALATION Q6HR PRN 05/29/19 11/02/21 History Fenofibrate Nanocrystallized 145 mg PO DAILY 05/29/19 11/02/21 History [Fenofibrate] Fluticasone Propionate 110 Mcg 1 puff INHALATION RT-BID 05/29/19 11/02/21 History [Flovent 110 Mcg Inhaler (Bulk)] Montelukast [Singulair] 10 mg PO DAILY 05/29/19 11/02/21 History Cetirizine HCl [Zyrtec] 10 mg PO DAILY PRN 07/28/20 11/02/21 History Fluticasone Nasal [place] [Flonase 1 spray EA NOSTRIL DAILY PRN 07/28/20 11/02/21 History Nasal [place]] Estradiol Cream [Estrace Cream 1 gm VAGINAL Q3D 10/04/21 11/02/21 History 0.01%] Sertraline [Zoloft] 25 mg PO HS 10/04/21 11/02/21 History Tolterodine ER [Detrol LA] 4 mg PO DAILY 10/04/21 11/02/21 History Allergies Allergy/AdvReac Type Severity Reaction Status Date / Time hydrocodone bitartrate Allergy Nausea, Verified 11/02/21 11:19 [From Vicodin] Spinning levofloxacin Allergy MUSCLE Verified 11/02/21 11:19 ACHES mirabegron [From Myrbetriq] Allergy JOINT Verified 11/02/21 11:19 PROBLEM nitrofurantoin Allergy Nausea & Verified 11/02/21 11:19 [From Macrodantin] Vomiting Sulfa (Sulfonamide Allergy Itching, Verified 11/02/21 11:19 Antibiotics) Hives adhesive AdvReac Unknown Irritated Verified 11/02/21 11:19 skin Exam Vital Signs Temp Pulse Resp BP Pulse Ox 11/02/21 11:32 81 114/65 11/02/21 11:19 98.4 F 17 97 Intake and Output 11/01/21 11/02/2122 22:59 06:59 14:59 Other: Weight 50.349 kg Height 5 foot 1 inch, weight 111 pounds, BMI 21.0. This is a well-developed well-nourished white female who is alert and oriented times 3 in no acute distress. HEENT: Within normal limits. NECK: Supple without mass or thyromegaly. CHEST AND LUNGS: Clear to auscultation. HEART: Regular rate and rhythm. BREASTS: Are without mass or discharge. AXILLARY EXAM: Negative for adenopathy. BACK: Negative for CVA tenderness. ABDOMEN: Soft, nontender, without palpable masses. PELVIC EXAM: External genitalia appears normal with mild atrophy. Vagina appears normal with mild atrophy. There is no evidence of prolapse. Bimanual examination is negative for mass or tenderness. RECTAL EXAM: Rectovaginal exam is negative for mass or tenderness and is negative for occult blood. EXTREMITIES: Nontender. IMPRESSION: 1. 70-year-old menopausal female status post GILBERTO for benign reasons, with normal gynecologic exam. 2. History of osteopenia. 3. Improved vasomotor symptoms and anxiety with low dose sertraline. The patient states when she attempted to wean off of it, her vasomotor symptoms worsened. 4. Doing well with estradiol vaginal cream for vaginal dryness and urinary symptoms. 5. Multiple urologic problems including interstitial cystitis, overactive bladder, and history of bilateral kidney stones. She is seen by a urologist. PLAN: 1. Pap smears have been discontinued. 2. Self breast awareness was discussed with the patient. We have also discussed symptoms associated with inflammatory breast cancer. 3. Screening mammogram will be done today. 4. Continue estradiol vaginal cream 1 g 2 times weekly and sertraline 25 mg by mouth daily. These [facility]. In the upcoming year she will attempt to wean from her sertraline dose to see if she can do this without significant worsening of her symptoms. 5. She has completed her Covid vaccination series and did receive a booster. 6.Osteoporosis prevention was discussed. I have stressed the importance of adequate calcium, vitamin D and regular exercise. Recommended amounts of calcium and vitamin D were also discussed. Bone density testing will be done today. 7. She was advised to return in one year for her annual well woman exam.
--- NOTE | 2021-11-03 07:40 | MM ---
Reason for Exam: Screening (asymptomatic). Last mammogram was performed 1 year(s) and 3 month(s) ago. Patient History: Menarche at age 12. First Full-Term at age 17. Hysterectomy at age 26. Postmenopausal. Core Biopsy on the Right side. 08/29/2005, Benign Core Biopsy on the right side. 08/16/1999, Benign Excisional Biopsy on the right side. Benign Ultrasound-Guided Core Biopsy. Risk Values: Carolyn 5 year model risk: 1.9%. NCI Lifetime model risk: 5.2%. Prior Study Comparison: 05/02/2018 Bilateral Screening Mammogram, [facility]. 05/29/2019 Bilateral Screening Mammogram, [facility]. 07/28/2020 Bilateral Screening Mammogram, [facility]. Tissue Density: There are scattered fibroglandular densities. Findings: Analyzed By CAD. Postoperative Distortion right breast. Stable benign-appearing calcifications bilaterally. There is no suspicious group of microcalcifications or new suspicious mass in either breast. Overall Assessment: Benign, BI-RAD 2 Management: Screening Mammogram of both breasts in 1 year. A clinical breast exam by your physician is recommended on an annual basis and results should be correlated with mammographic findings. Electronically signed and approved by: Luisito Thomas M.D. Radiologis
--- NOTE | 2021-11-03 15:17 | BD ---
EXAMINATION TYPE: Axial Bone Density DATE OF EXAM: 11/02/2021 COMPARISON: Prior DEXA bone scan report May 29, 2019 CLINICAL HISTORY: 70 years year old Female. ICD-10 CODE: Z78.0 Post menopausal without HRT Height: 5 '1/2 Weight: 110 FRAX RISK QUESTIONS: Family History (Parent hip fracture): y Secondary Osteoporosis: RISK FACTORS HISTORY OF: Family History of Osteoporosis: y Postmenopausal woman: y MEDICATIONS: Additional Medications: cholesterol, bladder control , acid reflux,zoloft Additional History: EXAM MEASUREMENTS: Bone mineral densitometry was performed using the [employer] System. Bone mineral density as measured about the Lumbar spine is: ----- L1-L4(G/cm2): 1.016 T Score Values are as follows: ----- L1: -1.7 ----- L2:-2.3 ----- L3: -2.2 ----- L4:0.1 ----- L1-L4:-1.4. Bone mineral density about the R hip (g/cm2): 0.715 Bone mineral density about the L hip (g/cm2): 0.714 T Score values are as follows: -----R Neck: -2.3 -----L Neck: -2.3 -----R Total: -1.5 -----L Total: -1.4 FRAX%s: The graph provided illustrates a 21.1% chance for a major osteoporotic fx and a 9.2% chance f or the hips probability for fx in 10 years time. IMPRESSION: Osteopenia (T Score between -2.5 and -1) remains present. There is slightly increased risk of fracture and the patient may be considered for treatment. Re-Screen 2-5 years. NOTE: T-SCORE=SD OF THE YOUNG ADULT MEAN.
--- NOTE | 2021-11-03 15:37 | P.PN ---
Progress Note - Text Progress Note Date: 11/03/21 OUTPATIENT FOLLOW-UP NOTE TEST(S)/RESULTS: Test results from 11/02/2021 include benign mammogram and own density testing showing osteopenia. METHOD OF NOTIFICATION: A message with these results was left on the patient's voicemail. PATIENT COMMENTS: DIAGNOSIS: Benign mammogram and osteopenia. DISCUSSION: I have also let the patient know that the hip measurements are closer to the osteoporosis range this time. I have stressed the importance of getting adequate calcium, vitamin D, and regular exercise. PLAN: Repeat bone density testing in 2 years.
== END ==
LOC: WWCWWP 11:11
PROVIDERS: ATTEND Obstetrics & Gynecology
DX: Z01.419 Encounter for gynecological examination (general) (routine) without abnormal findings (principal); Z12.31 Encounter for screening mammogram for malignant neoplasm of breast; Z78.0 Asymptomatic menopausal state; Z90.710 Acquired absence of both cervix and uterus; Z87.39 Personal history of other diseases of the musculoskeletal system and connective tissue; N30.10 Interstitial cystitis (chronic) without hematuria; N32.81 Overactive bladder; Z79.899 Other long term (current) drug therapy; Z87.442 Personal history of urinary calculi; J45.909 Unspecified asthma, uncomplicated; E78.5 Hyperlipidemia, unspecified; F41.9 Anxiety disorder, unspecified; K21.9 Gastro-esophageal reflux disease without esophagitis; Z79.51 Long term (current) use of inhaled steroids; Z88.5 Allergy status to narcotic agent; Z88.1 Allergy status to other antibiotic agents; Z88.2 Allergy status to sulfonamides; Z91.048 Other nonmedicinal substance allergy status
CPT/HCPCS: 77063; 77067; 77080

== ENCOUNTER → 2022-09-27 | Outpatient (CLI) | payer MEDICARE ==
--- NOTE | 2022-09-28 09:14 | CT ---
EXAMINATION TYPE: CT chest wo con DATE OF EXAM: 09/28/2022 COMPARISON: Prior CT October 12 2020 HISTORY: Solitary pulmonary nodule CT DLP: 142.40 mGycm. Automated Exposure Control for Dose Reduction was Utilized. TECHNIQUE: CT scan of the thorax is performed without IV contrast. FINDINGS: LUNGS: There is 4-5 mm. Peripheral right middle lobe nodule axial image 40 that is stable or slightly larger. There is mild anterior bibasilar scarring redemonstrated. Better visualized 5 mm peripheral left lower lobe nodule axial image 43 is seen. There is a new 5 mm peripheral right lower lobe nodule axial image 35. There is new 5 mm right middle lobe nodule axial image 34. No pleural effusion or pneumothorax seen bilaterally. MEDIASTINUM: Lack of IV contrast is noted to limit evaluation for mediastinal and especially hilar ad enopathy. There are no definitive greater than 1 cm hilar or mediastinal lymph nodes. No cardiomega ly or pericardial effusion is seen. OTHER: Bilateral nephrolithiasis now present including 11 mm central calculus in the left kidney axia l image 63. IMPRESSION: 1. New and slightly larger small bilateral lower lung pulmonary nodules. No greater than 5 mm pulmona ry nodules however. Metastatic disease cannot be excluded. At minimum short-term follow-up CT in 3-6 months time is advised to reassess. 2. New 11 mm calculus in left kidney upper pole calyx. Urology follow-up advised.
== END | disposition home or self-care (01) ==
LOC: RADCTMAIN 09:37
PROVIDERS: ATTEND Family Medicine
DX: R91.8 Other nonspecific abnormal finding of lung field (principal); N20.0 Calculus of kidney
CPT/HCPCS: 71250

== ENCOUNTER → 2022-11-29 | Outpatient (CLI) | payer MEDICARE ==
[2022-11-29 11:52] VITALS: BP 120/63; PULSE 87; RESP 16; TEMP 98.1
--- NOTE | 2022-11-29 12:25 | P.HPOB ---
History of Present Illness H&P Date: 11/29/22 Chief Complaint: The patient is here for her routine gynecologic exam and ma mmogram. This is a 71-year-old with an LMP of 1976. She is status post GILBERTO for uterine fibroids. She has weaned herself off of Zoloft, which she was taking for hot flashes and anxiety. She has been off it for about 3 weeks and states she is not having much problem after discontinuing it. She occasionally has had some hot flashes or night sweats at night without the medication, but it has been tolerable. She states she has no longer needed the estrogen vaginal cream since she is no longer sexually active, so she discontinued it. She is without gynecologic complaints. Review of Systems The patient has gained 3 pounds over the last year. She denies respiratory or cardiac problems. GI: She is having occasional heartburn at night and plans to see her PCP about this. Past Medical History Past Medical History: Asthma, GERD/Reflux, Hyperlipidemia Additional Past Medical History / Comment(s): HX KIDNEY STONES.,HX OF H-PYLORI., HOT FLASHES. Osteopenia. Seasonal ALLERGIES. Overactive bladder. 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 History of Any Multi-Drug Resistant Organisms: None Reported Past Surgical History: Breast Surgery, Hysterectomy, Orthopedic Surgery Additional Past Surgical History / Comment(s): GILBERTO in 1976, R BREAST BX, EGD, COLONOSCOPY 2021(next after 10yr), SIGMOIDOSCOPY. RIGHT SHOULDER SURGERY , LEFT KIDNEY STONE-LITHOTRIPSY Past Anesthesia/Blood Transfusion Reactions: Postoperative Nausea & Vomiting (PONV) Past Psychological History: Anxiety (The PHQ-2 depression screening questionnaire was negative and she scored 0.) Smoking Status: Never smoker Past Alcohol Use History: Occasional (0-1 per month.) Past Drug Use History: None Reported Additional History: She has been since 1967 and is not sexually active. - Past Family History Father Family Medical History: Cancer Additional Family Medical History / Comment(s): PROSTATE CANCER Mother Family Medical History: Myocardial Infarction ([place]) Additional Family Medical History / Comment(s): Grandfather had heart disease. Grandmother had diabetes. Medications and Allergies Home Medications Medication Instructions Recorded Confirmed Type Cholecalciferol [Vitamin D3] 2,000 tab PO DAILY 12/18/13 11/29/22 History Albuterol Sulfate [Proair Hfa] 1 - 2 puff INHALATION Q6HR PRN 05/29/19 11/29/22 History Fenofibrate Nanocrystallized 145 mg PO DAILY 05/29/19 11/29/22 History [Fenofibrate] Fluticasone Propionate 110 Mcg 1 puff INHALATION RT-BID 05/29/19 11/29/22 History [Flovent 110 Mcg Inhaler (Bulk)] Montelukast [Singulair] 10 mg PO DAILY 05/29/19 11/29/22 History Cetirizine HCl [Zyrtec] 10 mg PO DAILY PRN 07/28/20 11/29/22 History Tolterodine ER [Detrol LA] 4 mg PO DAILY 10/04/21 11/29/22 History Estradiol Cream [Estrace Cream 1 gm VAGINAL DIRECTED #42.5 gm 11/16/21 11/29/22 Rx 0.01%] Allergies Allergy/AdvReac Type Severity Reaction Status Date / Time hydrocodone bitartrate Allergy Nausea, Verified 11/29/22 11:42 [From Vicodin] Spinning levofloxacin Allergy MUSCLE Verified 11/29/22 11:42 ACHES mirabegron [From Myrbetriq] Allergy JOINT Verified 11/29/22 11:42 PROBLEM nitrofurantoin Allergy Nausea & Verified 11/29/22 11:42 [From Macrodantin] Vomiting Sulfa (Sulfonamide Allergy Itching, Verified 11/29/22 11:42 Antibiotics) Hives adhesive AdvReac Unknown Irritated Verified 11/29/22 11:42 skin Exam Vital Signs Temp Pulse Resp BP Pulse Ox 11/29/22 11:45 98.1 F 87 16 120/63 100 Intake and Output 11/28/22 11/29/22 11/29/22 22:59 06:59 14:59 Other: Weight 51.71 kg Height 5 foot 1 inch, weight 114 pounds, BMI 21.5. This is a well-developed well-nourished white female who is alert and oriented times 3 in no acute distress. HEENT: Within normal limits. NECK: Supple without mass or thyromegaly. CHEST AND LUNGS: Clear to auscultation. HEART: Regular rate and rhythm. BREASTS: Are without mass or discharge. AXILLARY EXAM: Negative for adenopathy. BACK: Negative for CVA tenderness. ABDOMEN: Soft, nontender, without palpable masses. PELVIC EXAM: External genitalia appears normal with mild to moderate atrophy. Vagina appears normal with mild atrophy. There is no evidence of prolapse. Bimanual examination is negative for mass or tenderness. RECTAL EXAM: Rectovaginal exam is negative for mass or tenderness and is negative for occult blood. EXTREMITIES: Nontender. IMPRESSION: 1. 71-year-old menopausal female status post GILBERTO for benign reasons, with normal gynecologic exam. 2. History of osteopenia. 3. She has successfully weaned off of the sertraline which she was using for hot flashes and vasomotor symptoms are tolerable. 4. She is no longer using vaginal estrogen cream. PLAN: 1. Pap smears have been discontinued. 2. Self breast awareness was discussed with the patient. We have also discussed symptoms associated with inflammatory breast cancer. 3. Screening mammogram will be done today. 4. Osteoporosis prevention was discussed. I have stressed the importance of adequate calcium, vitamin D and regular exercise. Recommended amounts of calcium and vitamin D were also discussed. We will plan on repeating the bone density test in 1 year. 5. She was advised to return in one year for her annual well woman exam.
--- NOTE | 2022-11-30 08:03 | MM ---
Reason for Exam: Screening (asymptomatic). Last mammogram was performed 1 year(s) and 1 month(s) ago. Patient History: Menarche at age 12. First Full-Term at age 17. Hysterectomy at age 26. Postmenopausal. Core Biopsy on the Right side. 08/29/2005, Benign Core Biopsy on the right side. 08/16/1999, Benign Excisional Biopsy on the right side. Benign Ultrasound-Guided Core Biopsy. Risk Values: Carolyn 5 year model risk: 1.9%. NCI Lifetime model risk: 5.0%. Prior Study Comparison: 05/29/2019 Bilateral Screening Mammogram, [facility]. 07/28/2020 Bilateral Screening Mammogram, [facility]. 11/02/2021 Bilateral MG 3D screening mammo w/cad, [facility]. Tissue Density: The breast tissue is heterogeneously dense. This may lower the sensitivity of mammography. Findings: Analyzed By CAD. Benign biopsies right breast. Stable mild distortion right breast. Benign-appearing calcifications seen bilaterally. No definite evidence for mass. Overall Assessment: Benign, BI-RAD 2 Management: Screening Mammogram of both breasts in 1 year. . Patient should continue monthly self-breast exams. A clinical breast exam by your physician is recommended on an annual basis. This exam should not preclude additional follow-up of suspicious palpable abnormalities. Note on Carolyn scores and lifetime risk: 1. A Carolyn score greater than 3% is considered moderate risk. If this is the case, consider specialist referral to assess eligibility for a risk reducing agent. 2. If overall lifetime risk for the development of breast cancer is 20% or higher, the patient may qualify for future screening with alternating mammogram and breast MRI. Electronically signed and approved by: Luisito Thomas M.D. Radiologis
== END ==
LOC: WWCWWP 11:14
PROVIDERS: ATTEND Obstetrics & Gynecology
DX: J45.909 Unspecified asthma, uncomplicated (principal); F41.9 Anxiety disorder, unspecified; K21.9 Gastro-esophageal reflux disease without esophagitis; E78.5 Hyperlipidemia, unspecified; M85.80 Other specified disorders of bone density and structure, unspecified site; Z12.31 Encounter for screening mammogram for malignant neoplasm of breast; Z78.0 Asymptomatic menopausal state; Z79.51 Long term (current) use of inhaled steroids; Z86.018 Personal history of other benign neoplasm; Z88.5 Allergy status to narcotic agent; Z88.1 Allergy status to other antibiotic agents; Z88.2 Allergy status to sulfonamides; Z91.048 Other nonmedicinal substance allergy status; Z88.8 Allergy status to other drugs, medicaments and biological substances
CPT/HCPCS: 77063; 77067

== ENCOUNTER → 2022-12-29 | Outpatient (CLI) | payer MEDICARE ==
--- NOTE | 2022-12-30 08:19 | CT ---
EXAMINATION TYPE: CT chest wo con DATE OF EXAM: 12/29/2022 COMPARISON: 09/27/2022 HISTORY: Abnormal lung hidalgo. CT DLP: 124.4 mGycm, Automated exposure control for dose reduction was used. CONTRAST: Performed injected with 0 mL of Isovue 300. TECHNIQUE: Axial images were obtained at 5 mm thick sections. Reconstructed images are reviewed on [employer] computer in the coronal plane. FINDINGS: Portion of the thyroid visualized is normal. There is a 0.5 cm density periphery right midlung. Series 4 image 30 there is a 0.6 cm nodule anterio r right midlung. Series 4 image 31. These appear stable from comparison. Some peripheral pneumonitis changes within the right middle lobe. Some nodularity may be adjacent to the pleural margin, this measures 0.6 cm, series 4 image 39. The previous density is less well-visual ized in this region, findings otherwise developing over the interval. No enlarged mediastinal or hilar adenopathy is evident. Scattered small lymph nodes are present. Lac k of intravenous contrast limits evaluation for hilar adenopathy. The ascending aorta diameter at the level of the main pulmonary artery is 3.0 cm. The main pulmonary artery diameter at the bifurcation is 2.5 cm. Mild coronary artery calcification is present. Limited CT sections are obtained through the upper abdomen. There is a nonobstructing 1.0 cm calcific ation upper pole left kidney IMPRESSION: 1. Changing small nodularity and infiltrate within the mid right lung. 2. Stable nodules within the right mid to upper lung field.
== END | disposition home or self-care (01) ==
LOC: RADCTMAIN 08:46
PROVIDERS: ATTEND Family Medicine
DX: R91.8 Other nonspecific abnormal finding of lung field (principal)
CPT/HCPCS: 71250

== ENCOUNTER → 2023-12-06 | Outpatient (CLI) | payer MEDICARE ==
--- NOTE | 2023-12-27 22:19 | MM ---
Reason for Exam: Screening (asymptomatic). Last screening mammogram was performed 12 month(s) ago. Patient History: Menarche at age 12. First Full-Term at age 17. Hysterectomy at age 26. Postmenopausal. Core Biopsy on the Right side. 08/29/2005, Benign Core Biopsy on the right side. 08/16/1999, Benign Excisional Biopsy on the right side. Benign Ultrasound-Guided Core Biopsy. Risk Values: Carolyn 5 year model risk: 1.9%. NCI Lifetime model risk: 4.7%. Prior Study Comparison: 07/28/2020 Bilateral Screening Mammogram, [facility]. 11/02/2021 Bilateral MG 3D screening mammo w/cad, [facility]. 11/29/2022 Bilateral MG 3D screening mammo w/cad, [facility]. Tissue Density: There are scattered areas of fibroglandular density. Findings: Areas of asymmetric density are unchanged. Scattered benign punctate and vascular calcifications redemonstrated. There is no suspicious group of microcalcifications or new suspicious mass in either breast. Overall Assessment: Benign, BI-RAD 2 Management: Screening Mammogram of both breasts in 1 year. . Patient should continue monthly self-breast exams. A clinical breast exam by your physician is recommended on an annual basis. This exam should not preclude additional follow-up of suspicious palpable abnormalities. Note on Carolyn scores and lifetime risk: 1. A Carolyn score greater than 3% is considered moderate risk. If this is the case, consider specialist referral to assess eligibility for a risk reducing agent. 2. If overall lifetime risk for the development of breast cancer is 20% or higher, the patient may qualify for future screening with alternating mammogram and breast MRI. Electronically signed and approved by: Ad Solano M.D. Radiologist
== END | disposition home or self-care (01) ==
LOC: RADBDWWP 12:00
PROVIDERS: ATTEND Obstetrics & Gynecology
DX: Z12.31 Encounter for screening mammogram for malignant neoplasm of breast (principal); R92.323 Mammographic fibroglandular density, bilateral breasts; Z78.0 Asymptomatic menopausal state
CPT/HCPCS: 77063; 77067

== ENCOUNTER → 2024-01-04 | Outpatient (CLI) | payer MEDICARE ==
--- NOTE | 2024-01-04 11:36 | BD ---
EXAMINATION TYPE: Axial Bone Density DATE OF EXAM: 01/04/2024 CLINICAL HISTORY: 73 years old Female. ICD-10 CODE: Z78.0 ASYMPTOMATIC POST MENOPAUSAL Height: 61" Weight: 111lbs FRAX RISK QUESTIONS: Alcohol (3 or more units per day): No Family History (Parent hip fracture): No Glucocorticoids (More than 3mos): No (Ex: prednisone, prednisolone, methylprednisolone, dexamethasone, and hydrocortisone). History of Fracture in Adulthood: No Secondary Osteoporosis: 1. Type 1 Diabetes: No 2. Hyperthyroidism: No 3. Menopause before 45: Yes 4. Malnutrition: No 5. Chronic liver disease: No Rheumatoid Arthritis: No Current Tobacco Use: No RISK FACTORS HISTORY OF: Hip Fracture (Right/Left): No Spine Fracture: No History of Wrist Fracture: No Surgery to Spine/Hip(right/left)/Wrist (right/left): No MEDICATIONS: Thyroid Medications: No Osteoporosis Medications: No EXAM MEASUREMENTS: Bone mineral densitometry was performed using the [employer]soVision System. Bone mineral density as measured about the Lumbar spine is: ----- L1-L4(G/cm2): 1.006 T Score Values are as follows: ----- L1: -1.7 ----- L2: -2.3 ----- L3: -2.2 ----- L4: -0.1 ----- L1-L4: -1.4 Z Score Values are as follows: ----- L1: 0.5 ----- L2: -0.1 ----- L3: 0.0 ----- L4: 2.1 ----- L1-L4: 0.8 Bone mineral density has: decreased -1.0% since study of: 11/02/2021 Bone mineral density about the R hip (g/cm2): 0.841 Bone mineral density about the L hip (g/cm2): 0.875 T Score values are as follows: -----R Neck: -2.1 -----L Neck: -1.0 -----R Total: -1.3 -----L Total: -1.1 Z Score values are as follows: -----R Neck: 0.1 -----L Neck: 1.2 -----R Total: 0.7 -----L Total: 1.0 Bone mineral density has: increased 4.3% since study of: 11/02/2021 FRAX%s: The graph provided illustrates a 12.3% chance for a major osteoporotic fx and a 3.3% chance f or the hips probability for fx in 10 years time. IMPRESSION: Osteopenia (T Score between -2.5 and -1). There is slightly increased risk of fracture and the patient may be considered for treatment. Re-Screen 2-5 years. NOTE: T-SCORE=SD OF THE YOUNG ADULT MEAN.
--- NOTE | 2024-01-11 10:37 | P.PN ---
Progress Note - Text Progress Note Date: 01/11/24 OUTPATIENT FOLLOW-UP NOTE TEST(S)/RESULTS: Bone density test done on 01/04/2024 shows osteopenia and appears fairly stable from her 2021 bone density test METHOD OF NOTIFICATION: The patient was notified by phone on 01/11/2024 PATIENT COMMENTS: DIAGNOSIS: Stable osteopenia. DISCUSSION: I have stressed continuing to get adequate calcium, vitamin D, and regular exercise. We will plan on repeating the bone density test in 2 to 3 years. PLAN: As above.
== END | disposition home or self-care (01) ==
LOC: RADBDWWP 08:42
PROVIDERS: ATTEND Obstetrics & Gynecology
DX: Z78.0 Asymptomatic menopausal state
CPT/HCPCS: 77080

== ENCOUNTER → 2024-02-07 | Outpatient (CLI) | payer MEDICARE ==
--- NOTE | 2024-02-07 12:37 | CT ---
EXAMINATION TYPE: CT chest wo con CT DLP: 149.1 mGycm, Automated exposure control for dose reduction was used. DATE OF EXAM: 02/07/2024 12:19 PM COMPARISON: CT chest 12/29/2022, 09/28/2022, 10/12/2020 CLINICAL INDICATION:Female, 73 years old with history of R91.8 ABNORMAL FINDINGS OF LUNG FIELD; PHH, F/U LUNG NODULE. TECHNIQUE: Multiple axial images were obtained through the chest without IV contrast. Lack of IV or o ral contrast limits evaluation of solid and hollow organ viscera. . Coronal and sagittal reformats re viewed. FINDINGS: LUNGS/ PLEURA: Biapical pleural-parenchymal scarring. Stable left lower lobe pleural-based 7 mm pulm onary nodule (series 4, image 48). Additional stable scattered pulmonary nodules. New tree-in-bud nod ular opacities within the lingula and increased within the lateral right lower lobe. No pleural effus ion or pneumothorax. Anterior right middle lobe and lingular linear scarring. Bronchiectasis within t he lingula. AIRWAY: Patent and unremarkable. HEART: Size within normal limits. No pericardial effusion. MEDIASTINUM: No gross evidence of adenopathy. VASCULATURE: No aortic aneurysm. Four-vessel aortic arch. MUSCULOSKELETAL: No acute osseous abnormalities. Mild multilevel degenerative disc disease. SOFT TISSUES/LYMPH NODES: Unremarkable. LOWER NECK: No significant findings. UPPER ABDOMEN: Nonobstructive punctate right renal calculi. IMPRESSION: Stable pulmonary nodules with new lingular and increased right lateral mid lower lobe tree in bud nod ularity likely representing an infectious/inflammatory bronchiolitis. [facility], , 02/07/2024 12:35 PM
== END | disposition home or self-care (01) ==
LOC: RADCTMAIN 12:00
PROVIDERS: ATTEND Family Medicine
DX: R91.8 Other nonspecific abnormal finding of lung field (principal)
CPT/HCPCS: 71250

== ENCOUNTER → 2024-10-18 | Outpatient (CLI) | payer MEDICARE ==
[2024-10-18 19:15] LABS: ALT 17 U/L (8-44); AST 32 U/L (13-35); Albumin 4.7 g/dL (3.8-4.9); Albumin/Globulin Ratio 1.96 Ratio (1.60-3.17); Alkaline Phosphatase 79 U/L (41-126); Blood Urea Nitrogen 24.3 mg/dL (9.0-27.0); Calcium 10.1 mg/dL (8.7-10.3); Carbon Dioxide 23.4 mmol/L (21.6-31.8); Chloride 104 mmol/L (96-109); Globulin 2.4 g/dL (1.6-3.3); Glucose 83 mg/dL (70-110); HCT 37.6 % (37.2-46.3); HGB 12.4 g/dL (12.0-15.0); MCH 31.2 pg (27.0-32.0); MCV 94.5 FL (80.0-97.0); Mean Platelet Volume 9.8 FL (9.5-12.2); NRBC Per 100 WBC 0 X 10*3/uL (0.00-0.01); Platelet Count 409 X 10*3/uL (140-440); Potassium 4.1 mmol/L (3.5-5.5); RBC 3.98 X 10*6/uL (4.10-5.20); RDW 13.4 % (11.5-14.5); Sodium 140 mmol/L (135-145); Total Bilirubin 0.5 mg/dL (0.3-1.2); Total Protein 7.1 g/dL (6.2-8.2); WBC 6.13 X 10*3/uL (4.50-10.00)
[2024-10-18 19:16] LABS: Basophils # (A) 0.06 X 10*3/uL (0.00-0.10); Eosinophils # (A) 0.41 X 10*3/uL (0.04-0.35); Eosinophils % (A) 6.7 %; Lymphocytes # (A) 2.22 X 10*3/uL (0.90-5.00); Lymphocytes % (A) 36.2 %; Monocytes # (A) 0.45 X 10*3/uL (0.20-1.00); Monocytes % (A) 7.3 %; Neutrophils # (A) 2.97 X 10*3/uL (1.80-7.70); Neutrophils % (A) 48.5 %
== END | disposition home or self-care (01) ==
LOC: LABWHC1 15:58
PROVIDERS: ATTEND Family Medicine
DX: R10.32 Left lower quadrant pain (principal)
CPT/HCPCS: 36415; 80053; 85025

== ENCOUNTER → 2024-10-18 | Outpatient (CLI) | payer MEDICARE ==
--- NOTE | 2024-10-18 19:54 | CT ---
EXAMINATION TYPE: CT abdomen pelvis wo con DATE OF EXAM: 10/18/2024 4:41 PM COMPARISON: None. CLINICAL INDICATION: Female, 73 years old with history of [id number] LEFT LOWER QUADRANT PAIN; LLQ PAIN X 1 WEEK, RT SIDE RENAL STONES PER RECENT US TECHNIQUE: Axial CT abdomen pelvis wo con;Sagittal and coronal reformats were created on a separate workstation. Oral contrast used: without Oral Contrast (none if empty) CT DLP: 246.10 mGycm, Automated exposure control for dose reduction was used. FINDINGS: LOWER CHEST: Unremarkable ABDOMEN LIVER: Unremarkable GALLBLADDER AND BILE DUCTS: Unremarkable. PANCREAS: Unremarkable. SPLEEN: Unremarkable. ADRENAL GLANDS: Unremarkable. KIDNEYS AND URETERS: Nonobstructing right renal calculi measuring up to 5 mm in the inferior right ki dney. Right renal parenchymal scarring defects. No definite left-sided nephrolithiasis. No hydronephr osis or hydroureter bilaterally. PELVIS BLADDER: No evidence for wall thickening or mass given limitations of exam. REPRODUCTIVE: The uterus is surgically absent. ABDOMEN & PELVIS STOMACH AND BOWEL: Stomach and duodenum are unremarkable. Scattered diverticula are noted throughout the colon. No evidence of bowel obstruction. PERITONEUM/RETROPERITONEUM: No evidence of pneumoperitoneum or free fluid. VASCULATURE: No evidence of aortic aneurysm. MUSCULOSKELETAL: No acute osseous abnormalities LYMPH NODES: No gross evidence for lymphadenopathy. SOFT TISSUE/ABDOMINAL WALL: Unremarkable IMPRESSION: 1. No acute abnormality in the abdomen/pelvis. 2. Nonobstructing right renal calculi measuring up to 5 mm in the inferior right kidney. No evidence of hydronephrosis bilaterally. 3. Colonic diverticulosis. [facility], , 10/18/2024 7:52 PM
== END | disposition home or self-care (01) ==
LOC: RADCTMAIN 16:21
PROVIDERS: ATTEND Family Medicine
DX: N20.0 Calculus of kidney (principal); K57.30 Diverticulosis of large intestine without perforation or abscess without bleeding
CPT/HCPCS: 74176